=== PATIENT | female | born 1970 | race Caucasian/White ===

== ENCOUNTER → 2017-08-18 08:04 | Outpatient (CLI) | payer BC ==
[2016-11-27 09:55] VITALS: BMI 29.3
[~2017-08-18 08:04] MED LIST: CETIRIZINE HCL5 MG PO; HYDROCODONE-APA1 TAB PO; MOBIC7.5 MG PO
== END | disposition home or self-care (01) ==
LOC: D.RAD 08-16 13:00
DX: M25.552 Pain in left hip (principal)